=== PATIENT | female | born 1975 | race Caucasian/White ===

== ENCOUNTER → 2018-02-24 11:08 | Outpatient (CLI) | payer OTHER, SELFPAY ==
--- NOTE | 2018-02-24 | DI.MRI.S_ITS ---
PROCEDURE: MR FOOT RT WO CON INDICATIONS: RT FOOT PAIN TECHNIQUE: Noncontrast sagittal T1 spin echo and T2 fast spin echo with fat saturation, long-axis T1 spin echo and T2 fast spin echo with fat saturation, short-axis T1 spin echo and T2 fast spin echo with fat saturation through the forefoot. COMPARISON: None. FINDINGS: Image quality: Excellent. Bones and joints: No bone marrow contusions or metatarsal stress fractures. The sesamoid bones appear in expected positions, without internal edema. Mild first metatarsophalangeal joint degeneration. No intraosseous lesions. Soft tissues: The visualized plantar foot muscles demonstrate normal signal and bulk. Visualized flexor and extensor tendons appear intact, without tenosynovitis. The distal insertions of the peroneus brevis and longus tendons appear intact. The principal Lisfranc ligament appears intact. There is 8mm fluid collection seen between the first and second metatarsal heads demonstrating T2 hyperintense fluid signal although no contrast-enhanced images to exclude solid nature. Sagittal images demonstrate no evidence for plantar plate tears. There is fluid surrounding the anterior tibialis tendon in keeping with tenosynovitis. Nonspecific T2 hyperintensity/cyst seen measuring 2 mm at the plantar aspect of the forefoot at the margin of the distal fourth metatarsal head, image 22 series 8. IMPRESSION: Mild first and lesser metatarsophalangeal joint degeneration. Small amount of T2 hyperintensity (presumably fluid) between the first and second metatarsals suggestive of intermetatarsal bursitis although this could be confirmed with contrast-enhanced study to exclude solid mass. Increased study sensitivity for Stevenson's neuroma could be obtained with contrast-enhanced study, as clinically warranted. Mild edema within the abductor hallucis muscle. This raises the possibility of low-grade strain versus denervation or myositis. Mild anterior tibialis tenosynovitis. Dictated by: Nate Mcginnis M.D. on 02/24/2018 at 14:41 Approved by: Nate Mcginnis M.D. on 02/24/2018 at 15:07
== END ==
PROVIDERS: Visit Provider Podiatrist
DX: M79.671 Pain in right foot (principal); M19.071 Primary osteoarthritis, right ankle and foot; M65.861 Other synovitis and tenosynovitis, right lower leg; R60.9 Edema, unspecified
CPT/HCPCS: 73718

== ENCOUNTER → 2020-01-25 13:03 | Outpatient (CLI) | payer OTHER, SELFPAY ==
[2020-01-25 13:47] LABS: COVID19 -Nasal RAPID Negative (Negative)
== END ==
PROVIDERS: PCP Registered Nurse; Visit Provider Specialist
DX: Z03.818 Encounter for observation for suspected exposure to other biological agents ruled out (principal)
CPT/HCPCS: 87635

== ENCOUNTER 2020-01-28 06:46 | Day surgery (SDC) | payer OTHER, SELFPAY ==
[2020-01-23 13:23] VITALS: BMI 37.5
[2020-01-28] VITALS (9 sets, daily range): BP systolic 111–141; BP diastolic 61–91; PULSE 65–86; RESP 8–15; TEMP 36.2–36.7; O2SAT 93–100; BMI 36.6
--- NOTE | 2020-01-28 | PATH_ITS ---
[facility] Accession Number: [id number] . 01 Material submitted: . endometrium - ENDOMETRIAL MASS AND CURETTINGS . 02 Diagnosis: Endometrium, Curettings: Proliferative endometrium with focal features consistent with endometrial polyp. Negative for atypical hyperplasia or malignancy. MRV 01/30/2020 1443 Local . 02 Electronically signed: . Lisandro Khan MD, PhD, Pathologist NPI- [id number] . 01 Gross description: . ENDOMETRIAL MASS AND CURETTINGS: Received in formalin are multiple fragment(s) of oviedo, soft tissue measuring 2.5 x 2.3 x 1.6 cm in aggregate submitted entirely in 3 cassette(s) /QBJ 01/29/2020 1006 Local . 02 Pathologist provided ICD-10: N84.0 . 02 CPT . 494409 Performed at: 01 [facility] [address] [id number] MD Salvador Marquez MD Phone: [phone] Performed at: 02 [facility] [address] [place], [place] [id number] MD Tiff Juan MD Phone: [phone]
[2020-01-28] MEDS: LACTATED RINGERS 1,000 ML 100 ML IV (07:21)
--- NOTE | 2020-01-28 07:39 | PM.PREOP ---
Pre-operative Note COVID-19 COVID-19 status: Negative Result date/Date tested (Pos, Neg/Pending): 01/25/20 Interval Note History & Physical reviewed/Exam performed by Physician: Yes Changes to H&P: Yes H&P completed within 30 days and has changed as indicated here:: 01/22/20 Procedure changed to D&C hysteroscopy with possible endometrial ablation due to denial by patient's insurance for [facility]/Bilateral salpingectomy
--- NOTE | 2020-01-28 08:13 | SUR.OPER ---
Lithotomy on padded OR bed, head on pillow, arms secured on padded arm boards at <90 degrees abduction. Legs secured in padded yellow fins stirrups.
--- NOTE | 2020-01-28 08:39 | SUR.OPER ---
novasure attemted and failed length 6.5, width 4.5, power 161
--- NOTE | 2020-01-28 08:47 | PM.GYNOP.1 ---
Operative Date/Time/Diagnoses Date of procedure: 01/28/20 Time of procedure: 08:48 Pre-op diagnosis: Menorrhagia Endometrial mass on ultrasound Post-op diagnosis: same Procedure & Clinicians Procedure: Procedures Operation Date: 01/28/20 07:45 Actual Procedures Side Surgeon p Hysteroscopy D&C/polypectomy/ attempted novasure ablation Aliza Stubbs MD Indications: Menorrhagia Endometrial mass on ultrasound Surgeon: Aliza Stubbs Anesthesia Type: General (LMA) Operative Notes Findings: Ten week size anteverted uterus Large polyp at the right fundus of the uterus Thickened endometrium throughout Both fallopian tube ostia observed Closure Type: not applicable Specimen(s): endometrial curettings and endometrial polyp Estimated blood loss (mL): 10 Blood products transfused: none Procedure in detail: After informed consent was obtained, the patient was taken to the operating room where she was placed in the dorsal supine position. After adequate LMA general anesthesia was achieved, she was placed in the dorsal lithotomy position, and prepped and draped in the usual sterile fashion. A time-out was performed. A bivalve speculum was placed into the vagina and the anterior lip of the cervix was grasped with a single-tooth tenaculum. The cervical os was sequentially dilated until the hysteroscope could pass easily into the endometrial cavity. Initial inspection with the hysteroscope revealed thickened endometrium throughout. There was a polyp originating from the right fundus of the uterus. The hysteroscope was removed. The resectoscope was placed. The polyp was resected in 3 pieces. The areas of thickened endometrium were also resected. The hysteroscope was removed. Polyp forceps were used to remove any loose polyp pieces. Sharp curettage was performed yielding a moderate amount of endometrial curettings. The Suresound was used to sound the uterus from the internal os to the fundus and measured 6.5 cm. This was set on the NovaSure catheter and the generator. The NovaSure catheter passed easily into the endometrial cavity and was opened. The with of the uterus was 4.5 cm. The cervix was capped. A 4 x 4 was placed between the cervix and the cap to ensure a seal. The power was 161 w. The cavity assessment was attempted but not passed. The catheter was closed in removed from the uterus and an attempt was made again. The cavity assessment could not be passed. The NovaSure catheter was closed and removed from the uterus. The single-tooth tenaculum was removed from the anterior lip of the cervix. The bivalve speculum was removed from the vagina. Sponge, lap, and instrument counts were correct x2. The patient tolerated the procedure well, and was taken to PACU in stable condition. Complications: none Post-operative Condition: stable Disposition: PACU Plan for aftercare: Home after recovery
== END 2020-01-28 09:43 | disposition home or self-care (01) ==
PROVIDERS: PCP Registered Nurse; Referring Provider Registered Nurse; Visit Provider Obstetrics & Gynecology
PROC: 0UDB8ZZ Extraction of Endometrium, Via Natural or Artificial Opening Endoscopic (ICD-10-PCS; CPT 58558; principal; 2020-01-28 07:45)
DX: N84.0 Polyp of corpus uteri (principal); N94.89 Other specified conditions associated with female genital organs and menstrual cycle; E66.9 Obesity, unspecified; F32.9 Major depressive disorder, single episode, unspecified; Z68.37 Body mass index [BMI] 37.0-37.9, adult
CPT/HCPCS: 58558; J1885; J2250; J3010

== ENCOUNTER → 2020-07-14 11:12 | Outpatient (CLI) | payer OTHER, SELFPAY ==
[2020-07-14 16:05] LABS: COVID19 -Nasal RAPID Negative (Negative)
== END ==
PROVIDERS: PCP Registered Nurse; Visit Provider Obstetrics & Gynecology
DX: Z01.812 Encounter for preprocedural laboratory examination (principal); Z20.822 Contact with and (suspected) exposure to COVID-19
CPT/HCPCS: 87635

== ENCOUNTER 2020-07-15 08:24 | Day surgery (SDC) | payer OTHER, SELFPAY ==
[2020-07-11 12:16] VITALS: BMI 35.9
[2020-07-15] VITALS (17 sets, daily range): BP systolic 91–127; BP diastolic 44–76; PULSE 65–85; RESP 8–18; TEMP 36.2–37.3; O2SAT 89–100; BMI 35.8
--- NOTE | 2020-07-15 | PATH_ITS ---
[facility] Accession Number: [id number] . 01 Material submitted: . uterus - UTERUS AND BILATERAL FALLOPIAN TUBES . 02 Diagnosis: Uterus and Bilateral Fallopian Tubes, Laparoscopic Supracervical Hysterctomy with Bilateral Salpingectomy (Morcellated specimen Weight 106 grams): Disordered prooliferative endometrium; negative for glandular hyperplasia, cytologic atypia, or malignancy. Myometrium with involvement by adenomyosis. Uterine serosa with no signficant histomorphologic abnormality. Portions of fallopian tube x2 with scattered benign paratubal cysts (2-3 mm); negative for atypia or malignancy. [facility] 07/21/2020 1542 Local . 02 Electronically signed: . Andie Gonzalez MD, Pathologist NPI- [id number] . 01 Gross description: . The specimen is received in formalin, labeled uterus and bilateral fallopian tubes and consists of a 106-gram morcellated uterus measuring 14.0 x 12.0 x 5.5 cm in aggregate. A cervix is not identified. The serosa is oviedo-pink and smooth. The oviedo-pink hemorrhagic endometrium measures 0.2 cm in thickness. The myometrium is oviedo-pink and diffusely trabeculated. Also received are two fallopian tubes measuring 5.5 cm in length by 1.2 cm in diameter and 8.2 cm in length by 1.0 cm in diameter. The serosa is pink-purple and smooth with paratubal cysts ranging from 0.2-0.3 cm. Sectioning reveals a oviedo-pink mucosa and a stellate lumen measuring 0.4 cm in diameter. Service Inspector sections are submitted. . A1-A2: lower uterine segment. A3-A4: endomyometrium. A5: myometrium and serosa. A6-A7: shorter fallopian tube, central cross-sections and bisected fimbria. A8: longer fallopian tube, central cross-sections and bisected fimbria. (EA:[id number]) /MRV 07/16/2020 1357 Local . 02 Pathologist provided ICD-10: N92.0 . 02 CPT . 957028 Performed at: 01 [facility] [address] [id number] MD Salvador Marquez MD Phone: [phone] Performed at: 02 [facility] [address] [place] [id number] MD Tiff Juan MD Phone: [phone]
[2020-07-15] MEDS: LACTATED RINGERS 1,000 ML 100 ML IV ×4 (09:03→23:35)
[2020-07-15] MEDS: ACETAMINOPHEN 325 MG TABLET 975 MG PO (09:07)
--- NOTE | 2020-07-15 09:41 | PM.PREOP ---
Pre-operative Note COVID-19 COVID-19 status: Negative Result date/Date tested (Pos, Neg/Pending): 07/14/20 Interval Note History & Physical reviewed/Exam performed by Physician: Yes Changes to H&P: No H&P completed within 30 days and has changed as indicated here:: 07/14/20
[2020-07-15] MEDS: CEFAZOLIN 2 GM/100 ML FROZ.PIGGY IV (10:04)
--- NOTE | 2020-07-15 10:50 | SUR.OPER ---
Lithotomy on padded OR bed. Woodfield Pad Positioner under torso. Head on pillow, arms padded and tucked at sides. Legs secured in padded yellow fins stirrups. Padded narrow arm board used under left arm for more support.
[2020-07-15] MEDS: BUPIVACAINE 0.5% W/ EPI (PF) 30 ML VIAL INJ (11:01)
[2020-07-15] MEDS: ROPIVACAINE 0.2% PF 2 MG/ML 10ML AMP 20 ML INJ (11:02)
--- NOTE | 2020-07-15 11:57 | PM.GYNOP.1 ---
Operative Date/Time/Diagnoses Date of procedure: 07/15/20 Time of procedure: 11:57 Pre-op diagnosis: Menorrhagia Anemia Fibroid uterus Post-op diagnosis: same Procedure & Clinicians Procedure: Procedures Operation Date: 07/15/20 09:45 Actual Procedures Side Surgeon p Laparoscopic Supracervical Hysterectomy w/ Bilateral Salpingectomy Aliza Stubbs MD Indications: Menorrhagia Anemia Fibroid uterus Surgeon: Aliza Stubbs Accredited Farm Manager: Nirali Mello Anesthesia Type: General and Local Operative Notes Findings: Twelve week size multi fibroid uterus Normal tubes Left ovary with 1.5 cm simple cyst Normal liver gallbladder Closure Type: primary Specimen(s): left tube, right tube and uterus Applied: catheter (Removed at the end of the case) Estimated blood loss (mL): 50 Blood products transfused: none Procedure in detail: The patient was taken to the operating room where she was placed in the dorsal supine position. After adequate general endotracheal anesthesia was achieved, she was placed in the dorsal lithotomy position, and prepped and draped in the usual sterile fashion. A timeout was performed. A bivalve speculum was placed into the vagina and the anterior lip of the cervix grasped with a single-tooth tenaculum. The cervical os was sequentially dilated until the ZUMI uterine manipulator could pass easily into the endometrial cavity. The single-tooth tenaculum was removed from the anterior lip of the cervix, and the bivalve speculum was removed from the vagina. Attention was then turned to the abdomen where 6 mL of half percent Marcaine with epinephrine were injected in the umbilical fold. A 5 mm incision was made. The Veees needle was placed into the peritoneal cavity, and its placement confirmed by aspiration and drop test. The Verees needle was removed. A 5 mm trocar was placed without difficulty. 2 other incisions were made midway between the pubic symphysis and umbilicus after 5 mL of half percent Marcaine with epinephrine were injected. These were 5 mm incisions. Two 5 mm trochars were placed under direct visualization. The right tube was grasped with an atraumatic grasper. Using the plasma kinetic with settings of 40 W the mesosalpinx was cauterized and cut all the way down to the cornua of the uterus by the special education assistant. The cornua of the uterus was then grasped with an atraumatic grasper. The utero-ovarian ligaments were cauterized and cut by the special education assistant. The round ligament and broad ligament was cauterized and cut with plasma kinetic by the special education assistant. Hemostasis was achieved. The bladder flap was created using the plasma kinetic with cautery and cut retirement across by the special education assistant. The uterine arteries on the right side were extensively cauterized with plasma kinetic by the special education assistant. All of this was repeated on the left side by the primary surgeon. The remainder of the bladder flap was created using the plasma kinetic, and the bladder taken down off the lower uterine segment and cervix. Using the Endoloop, the cervix was amputated from the uterus 2 cm above the uterosacral ligaments, after the ZUMI uterine manipulator was removed from the uterus. A moistened sponge stick was placed into the vagina. There was a small amount of bleeding noted from the posterior edge of the cervix, and this was cauterized for hemostasis. A sponge stick was placed into the vagina. 6 mL of half percent Marcaine with epinephrine were injected above the pubic symphysis. A 12 mm incision was made. A 12 mm trocar was placed under direct visualization. An Endobag was placed through the suprapubic trocar and the uterus and tubes were placed into the Endobag. The trocar was removed. The edges of the endobag were brought up through the incision. The Lucius placed into the endobag. The uterus and tubes were hand morcellated in approximately 16 pieces. The Endobag was removed from the peritoneal cavity with the Lucius. The pelvis was copiously irrigated with warm normal saline. The endocervix was extensively cauterized with the PlasmaKinetic. The posterior edge of the cervix was cauterized with the PlasmaKinetic. Hemostasis was achieved. The instruments were removed from the abdomen. The CO2 was allowed to escape. The suprapubic incision was closed on the fascia with 0 Vicryl with retraction from the special education assistant. Two subcutaneous sutures were placed with 3-0 Vicryl with simple interrupted sutures. All of the incisions were closed with 4-0 Biosyn in a subcuticular fashion. The moistened sponge stick was removed from the vagina. Sponge, lap, and instrument counts were correct x-2. The patient tolerated the procedure well, was taken to PACU in stable condition. Complications: none Post-operative Condition: stable Disposition: PACU Plan for aftercare: To acute care after recovery
[2020-07-15] MEDS: ONDANSETRON 4 MG/2 ML INJ IV (12:31)
[2020-07-15] MEDS: OXYCODONE IR 5 MG TABLET PO (12:31)
[2020-07-15] MEDS: hydrOXYzine pamoate 25 MG CAPSULE PO (12:31)
[2020-07-15] MEDS: ACETAMINOPHEN 325 MG TABLET 650 MG PO ×3 (16:00→23:33)
[2020-07-15] MEDS: KETOROLAC 30 MG/ML VIAL IV ×2 (18:25→23:32)
[2020-07-15] MEDS: DOCUSATE 250 MG CAPSULE PO (20:51)
--- NOTE | 2020-07-15 23:24 | PC.NURSE ---
Report received, care assumed 1530. VSS. Pt reports pain under control. Low fall risk, independent in room. Tolerating regular diet.
[2020-07-16 04:05] VITALS: BP 127/68; PULSE 75; RESP 18; TEMP 36.2; O2SAT 99
[2020-07-16] MEDS: ACETAMINOPHEN 325 MG TABLET 650 MG PO (05:11)
[2020-07-16] MEDS: KETOROLAC 30 MG/ML VIAL IV (05:11)
[2020-07-16 05:24] LABS: Add Manual Diff / Slide Review NO; Basophils Absolute Auto 0 /uL (0-100); Basophils Percent Auto 0.2 % (0-2); Eosinophils Absolute Auto 0 /uL (0-450); Hematocrit 33.7 % (36-46); Hemoglobin 11.5 g/dL (12.0-16.0); Lymphocytes Absolute Auto 2100 /uL (1100-4500); Lymphocytes Percent Auto 14.9 % (25-40); Mean Corpuscular Hemoglobin 28.8 PG (26-34); Mean Corpuscular Volume 84.6 fL (80-100); Monocytes Absolute Auto 700 /uL (0-900); Monocytes Percent Auto 5.3 % (3-14); Neutrophils Absolute Auto 11100 /uL (1500-7000); Neutrophils Percent Auto 79.6 % (50-75); Platelet Count 260 X10^3/uL (150-400); Red Blood Cell Count 3.98 X10^6/uL (4.0-5.2); Red Cell Distribution Width 12.9 % (11.6-14.8); White Blood Cell Count 13.9 X10^3/uL (4.5-11.0)
[2020-07-16 09:17] VITALS: BP 130/65; PULSE 76; RESP 16; TEMP 36.4; O2SAT 99
[2020-07-16] MEDS: CITALOPRAM 10 MG TABLET 20 MG PO (09:51)
[2020-07-16] MEDS: DOCUSATE 250 MG CAPSULE PO (09:51)
--- NOTE | 2020-07-16 11:14 | PC.NURSE ---
Assess- Patient is alert and oriented x3. She is being discharged from the hospital today. Lap sites to lower abdomen all cdi, patient sitting up in the chair and denies pain.
--- NOTE | 2020-07-16 15:56 | P.DS_ITS ---
History of Present Illness History of Present Illness Date Patient Seen: 07/16/20 Time Patient Seen: 08:30 Chief complaint: [facility] W/MAX SALOPINGECTOMY *OPB* Narrative: Patient is a 45-year-old postop day # 1 status post laparoscopic supracervical hysterectomy with bilateral salpingectomy. Patient was able to void without the catheter last evening. She is tolerating a diet. Pain is well controlled with Toradol and Tylenol. She is ambulating without assistance. No nausea or vomiting. Discharge Providers Provider Discharge Date: 07/16/20 Primary care physician: Vadim Key ND Discharge provider: Aliza Stubbs MD Summary Hospital Course Discharge Diagnosis: Status post laparoscopic supracervical hysterectomy with bilateral salpingectomy Hospital Course: Patient is a 45-year-old who presented on July 15, 2020 for a scheduled laparoscopic supracervical hysterectomy with bilateral salpingectomy. She underwent this procedure without complication. Her Weslye catheter was removed at the end of the case. She was able to void without the catheter on postop day # 0. On postop day # 1 she was tolerating a diet, ambulating independently, no nausea or vomiting, pain well controlled, and pain well controlled. She is discharged home on postop day # 1. Status at Discharge Cognitive/behavioral status at discharge: oriented Functional status at discharge: independent ambulation Overall status at discharge: patient is progressing back to baseline Time Spent with Patient Time spent: Less than 30 minutes Exam Vital Signs (past 8 hours): - 07/16/20 09:17 Temperature 97.6 F Pulse Rate 76 Respiratory Rate 16 Blood Pressure 130/65 Pulse Oximetry 99 Oxygen Delivery Method Room Air Oxygen Flow Rate 0 Narrative Exam Narrative: Generally: Patient is sitting up in bed, no acute distress Lungs: Clear to auscultation bilaterally Cardiovascular: Regular rate and rhythm Abdomen: Soft and flat. Good bowel sounds in all 4 quadrants Incision: Clean dry and intact with Allevyn dressings Extremities: Negative Homans Objective Labs Result Diagrams: 07/16/20 05:09 Labs: Laboratory Results - last 24 hr 07/16/20 05:09 WBC 13.9 H RBC 3.98 L Hgb 11.5 L Hct 33.7 L MCV 84.6 MCH 28.8 MCHC 34.0 RDW 12.9 Plt Count 260 Neut % (Auto) 79.6 H Lymph % (Auto) 14.9 L Hopkins % (Auto) 5.3 Eos % (Auto) 0.0 L Baso % (Auto) 0.2 Neut # (Auto) 70044 H Lymph # (Auto) 2100 Hopkins # (Auto) 700 Eos # (Auto) 0 Baso # (Auto) 0 PFSH Medical History (Updated 07/11/20 @ 12:18 by Marissa Roche RN) Depression History of hysteroscopy (01/28/20) Surgical History (Updated 07/15/20 @ 08:42 by Tiff Wong RN) History of ear surgery S/P tonsillectomy and adenoidectomy S/P wisdom tooth extraction Social History household members: children Smoking Status: Former smoker alcohol intake: current Discharge Assessment & Plan Assessment and Plan Assessment: Postop day # 1 status post [facility]/bilateral salpingectomy doing very well Plan of Treatment: Discharge to home Follow up in 2 wks by telehealth. Patient is instructed to call with fever, chills, redness or drainage around the incisions, or bleeding vaginally more than spotting to light Discharge Plan Discharge Plan Patient Disposition: Home Provider Discharge Comment: Call with fever, chills, redness or drainage around the incisions or bleeding vaginally more than spotting to light Tylenol 650 mg every 6 hours Ibuprofen 600mg every 6 hours Discharge orders & Medications Discharge Orders: Discharge (Order); Ordered 07/16/20 Ordered By: Aliza Stubbs Prescriptions: New oxycodone 5 mg tablet 5 mg PO Q4H PRN (Reason: pain) Qty: 20 RF: 0 Continued citalopram 20 mg tablet 20 mg PO DAILY RF: 0 Follow up/Referrals: Vadim Key ARNP [Primary Care Provider] - Aliza Stubbs MD [Physician] - 2 Weeks (Telehealth visit in 2 weeks 6 wk follow up in person) Diet/Activity/Treatments Diet: Regular Activity: No heavy lifting Skin/Wound/Dressing Care Report to your healthcare provider any signs of infection, such as:: chills, fever, increased pain, unusual drainage and unusual redness Dressing: Remove pink dressing with attached guaze in 3 days after a shower Visit Report/Discharge Packet Instructions: DI for Hysterectomy, DI for Laparoscopy, Oxycodone Stand Alone Forms: Surgery Discharge Discharge Data Primary Care Provider: Vadim Key Attending Provider: Aliza Stubbs VTE Deep Vein Thrombosis/Pulmonary Embolism Present on Admission: No
== END 2020-07-16 11:40 | disposition home or self-care (01) ==
LOC: OR 08:25 → AC 08:25
PROVIDERS: PCP Registered Nurse; Referring Provider Registered Nurse; Visit Provider Obstetrics & Gynecology
PROC: 0UT94ZL Resection of Uterus, Supracervical, Percutaneous Endoscopic Approach (ICD-10-PCS; CPT 58542; principal; 2020-07-15 09:45)
DX: N83.292 Other ovarian cyst, left side (principal); F32.9 Major depressive disorder, single episode, unspecified; D50.0 Iron deficiency anemia secondary to blood loss (chronic); N80.0 Endometriosis of uterus; N83.8 Other noninflammatory disorders of ovary, fallopian tube and broad ligament
CPT/HCPCS: 58542; 36415; 36591; 81025; 85025; J0330; J0690; J1100; J1885; J2250; J2405; J2704; J2795; J3010